=== PATIENT | male | born 1940 | race Caucasian/White ===

== ENCOUNTER 2016-10-20 08:27 | Observation (INO) ==
[2016-10-20] MEDS ORDERED: 0.9 % Sodium Chloride 500 ML ONE (09:30)
--- NOTE | 2016-10-20 11:15 | Anesthesia Evaluation PreOp ---
Date of Encounter: 10/20/16 Time of Encounter: 11:13 - Past History Planned Operation: EUS/ERCP Cardiac History: NC (2015), CHF, HTN (maintained on Metoprolol, Imdur, Norvasc, Imdur), Hyperlipidemia (maintained on Lipitor), Cardiac Stent (stents x 2 [2015] - mid LAD, Proximal LCx - maintained on ASA, Plavix [off x 7 days]), Pacemaker/ICD (AICD implanted 07/25/2016 - LVEF 35%, w/global hypokinesis), Other (ECHO 05/2016 - Cardiomyopathy w/ LVEF 35%) Pulmonary History: Former smoker (Quit 12 months ago), COPD (denies) SMOOTH PLATER History: Denies Any Significant HX Other Medical History: Hepatic (Obstructive jaundice), Other (GI notes Vit K deficiency Coagulopathy re: severe jaundice) Anesthesia History: No Prior Anesthetic Complications, Past Anesthesia (R-elbow surgery x 2 1960s, AICD 11/2016) Alcohol Use: occasionally Drug use: none Medications and Allergies Aspirin [Adult Low Dose Aspirin EC] 81 mg PO QPM 10/30/15 [History] Multivitamin [Multi-Day Vitamins] 1 tab PO QAM 10/30/15 [History] Atorvastatin [Lipitor] 40 mg PO HS #30 tablet 10/31/15 [Rx] Lisinopril [Zestril] 20 mg PO DAILY #30 tablet 10/31/15 [Rx] Clopidogrel Bisulfate [Plavix] 75 mg PO DAILY #30 tablet 11/11/15 [Rx] Metoprolol XL (24 HR) Succ [Toprol Xl] 50 mg PO DAILY 11/11/15 [History] Amlodipine Besylate 2.5 mg PO DAILY 07/25/16 [History] Isosorbide MONOnitrate (24 HR) [Imdur] 120 mg PO DAILY 07/25/16 [History] Acetaminophen [Tylenol] 650 mg PO Q4HR PRN #0 tablet 07/26/16 [Rx] Allergies No Known Allergies Allergy (Verified 08/04/15 10:40) - Meds/Allergy Pre-op Review Medications Reviewed: Yes Allergies Reviewed: Yes Beta Blockers on Current Med List: Yes Anesthesia Results - Labs Laboratory Tests 10/04/16 10/12/16 10/12/16 17:11 08:20 08:20 PT 17.9 H INR 1.6 Sodium 142 Potassium 3.2 L Chloride 107 Carbon Dioxide 27 BUN 21 Creatinine 0.89 Est GFR (Non-Af Amer) > 60 BUN/Creatinine Ratio 24 Glucose 116 H Total Bilirubin 8.4 H Direct Bilirubin 6.3 H Indirect Bilirubin 2.1 H AST 368 H ALT 378 H Alkaline Phosphatase 1123 H Albumin 2.9 L Globulin 3.9 H Albumin/Globulin Ratio 0.7 L CA 19-9 Antigen 25089 H - Imaging EKG: image reviewed (66bpm SR w/SA0) Anesthesia Exam O2 Sat Height 1.83 m Weight 77 kg O2 Sat by Pulse Oximetry 98 O2 Sat by Pulse Oximetry 98 O2 Sat by Pulse Oximetry 98 O2 Sat by Pulse Oximetry 98 O2 Sat by Pulse Oximetry 99 O2 Sat by Pulse Oximetry 99 Vital Signs Temp Pulse Resp BP Pulse Ox 98.3 F 70 16 151/95 99 10/20/16 08:58 10/20/16 08:58 10/20/16 08:58 10/20/16 08:58 10/20/16 08:58 Height: 6'0" Weight: 172.5# - HEENT Pupil (Motor): Pupils equal, EOMI Mallampati: II Oral Opening: Greater than 3 - SMOOTH PLATER LOC: Oriented SMOOTH PLATER Motor: Normal RUE, Normal LUE, Normal RLE, Normal LLE, Normal Face SMOOTH PLATER Sensory: Normal: RUE, LUE, RLE, LLE, Face - Cardiac Rhythm: Regular Murmur: None - Pulmonary Breath Sounds: bilateral Clear Respiratory Effort: Symmetrical Anesthesia Assess/Plan ASA Score: 3 (Smoker, COPD, CAD, AICD placed 07/2016,) Modified Nelly Scale for Level of Consciousness: Cooperative, oriented, and tranquil Anesthetic Plan: General Monitoring Plan: Standard Monitors Recovery Plan: PACU Anes Supervising Prov Stmt: Pt seen/evaluated, R&B discussed, questions answered and consent obtained. Fernandez Tsang MD
[2016-10-20] MEDS ORDERED: *HR* FentaNYL (PF) 100 MCG/2 ML VIAL ONE (11:16)
[2016-10-20 12:56] LABS: INR 1.4; Prothrombin Time 15.4 Seconds (9.4-12.1)
[2016-10-20 12:59] LABS: Activated Partial Thrombo Time 34.9 Seconds (26.0-36.0)
[2016-10-20] MEDS ORDERED: Indomethacin 50 MG SUPP.RECT RC ONE (13:24)
--- NOTE | 2016-10-20 19:44 | Oncology Inp Consult Note ---
Date of Encounter: 10/21/16 Time of Encounter: 19:41 Assessment and Plan (1) Angelina-ampullary carcinoma Status: Acute Assessment and plan: Presenting with deep jaundice elevated liver enzymes. No major pain. Prothrombin time 15.4 INR 1.4 with normal PTT 35 on 10/20/2016 Currently on aspirin 81 mg a day CA-19-9 elevated at 17,367 on 10/12/2016 Plan is to relieve the living obstruction. Possible PTCA and appointment of metal stent. The daily tumor board. He does have periportal and some lymphadenopathy upper abdomen. May consider palliative chemotherapy for FOLFIRINOX cannot tolerate it. If not may try intensive chemotherapy with Gemzar based regimen May consider PET scan as an outpatient. Given the amount of disease and lymphadenopathy he may not be a candidate for radiation and Dr. Mccurdy was present during the GI bleeding. Dr. Martin was present in the meeting. If necessary surgical biliary diversion can be considered especially if stenting does not work 2. Ischemic cardiomyopathy status post ICD May need a cardiac evaluation especially if any surgical procedure is being contemplated - Data of Consult Patient: new to practice Requesting Physician: Marie Lomax MD Primary Care Provider: Layo Woods MD - Consult Narrative Reason for consult: Obstructive jaundice with periampullary carcinoma History of present illness: Mr. Torres is a 76 year old male hospitalized with progressive jaundice. AST and ALT around 360 range. Alkaline phosphatase 1100 on 10/04/2016 Total bilirubin 8.4 with direct bilirubin 6.3 on 10/04/2016 CT abdomen and pelvis with contrast 10/06/2016 are dilated intrahepatic bile a direct common bile duct and pancreatic duct scan be followed all the way to the ampulla. No definite mass in the pancreatic head Bilateral renal cyst Prostatic calcifications suggesting chronic prostatitis Numerous small retroperitoneal lymph nodes Dr. Lomax did ERCP but periampullary mass is noted in ampulla could not be cannulated Cytology obtained and results pending CA-19-9 is elevated at 17,000 PTCA in biliary decompression planned. Discussed at the GI tumor Board 10/21/2016. Dr. Jaylan Barker be able to do PTCA and deploy a metal stent across the ampulla to complete blockage PSA normal at 1.84 Past medical history Ischemic cardiomyopathy Echocardiogram 06/06/2016 elevated left ventricular ejection fraction 35%. Dilatation. Right ventricular function normal size Single chamber Implantable defibrillator inserted on 07/25/2016. Clinically he is asymptomatic with no major shortness of breath or edema He may not be a candidate for MRI because of that Past Med Surg Social Fam HX - Past Medical History Medical history: cardiomyopathy, coronary artery disease, hyperlipidemia, hypertension Psychiatric history: no psych history - Past Surgical History Surgical History: angioplasty/stent, cataract, orthopedic, other - Social History Smoking Status: Former smoker Smokeless Tobacco Status: No Alcohol use: occasionally Drug use: none - Family History Father Family Member Ethnicity: Non- Living Status: Hx Family Cardiac Disorders: Yes ([place]) Hx Family Respiratory Disorders: No Hx Family Cancer: No Hx Family GI Disorders: No Hx Family Endocrine Disorder: No Hx Family Neuromuscular Disorders: No Hx Family Neurologic Disorders: No Hx Family HEENT Disorders: No Hx Family Autoimmune Disorders: No Brother Hx Family Cardiac Disorders: Yes (CABG) Medications and Allergies Aspirin [Adult Low Dose Aspirin EC] 81 mg PO QPM 10/30/15 [History] Multivitamin [Multi-Day Vitamins] 1 tab PO QAM 10/30/15 [History] Atorvastatin [Lipitor] 40 mg PO HS #30 tablet 10/31/15 [Rx] Lisinopril [Zestril] 20 mg PO DAILY #30 tablet 10/31/15 [Rx] Clopidogrel Bisulfate [Plavix] 75 mg PO DAILY #30 tablet 11/11/15 [Rx] Metoprolol XL (24 HR) Succ [Toprol Xl] 50 mg PO DAILY 11/11/15 [History] Amlodipine Besylate 2.5 mg PO DAILY 07/25/16 [History] Isosorbide MONOnitrate (24 HR) [Imdur] 120 mg PO DAILY 07/25/16 [History] Acetaminophen [Tylenol] 650 mg PO Q4HR PRN #0 tablet 07/26/16 [Rx] Allergies No Known Allergies Allergy (Verified 08/04/15 10:40) Oncology - Exam - Constitutional Vitals: Temp Pulse Resp BP Pulse Ox 98.3 F 64 16 155/99 97 10/20/16 18:11 10/20/16 18:11 10/20/16 18:11 10/20/16 18:11 10/20/16 18:11 Exam: GENERAL: Alert and oriented, well appearing. Mental Status: Affect appropriate for circumstances HEENT: Deep jaundice. No mucositis or thrush. No other oral or pharyngeal lesions or erythema. Skin: No rashes or petechiae. No evidence of skin malignancy Lymph nodes: No cervical, supraclavicular, axillary, or inguinal adenopathy. Lungs: Clear to auscultation and percussion bilaterally. Cardiovascular: Regular rate and rhythm. No gallops, murmurs, or rubs. Abdomen: Mild epigastric tenderness Extremities: No edema. No calf swelling or tenderness. No joint deformity. Neurologic: Alert, cranial nerves II-XII intact; normal gait; no focal weakness or sensory abnormalities. Consult Discharge Plan - Plan Referrals: Layo Woods MD [Primary Care Provider] -
--- NOTE | 2016-10-20 20:30 | Internal Med History&Physical ---
Date of Encounter: 10/20/16 Time of Encounter: 20:26 Assessment and Plan (1) Sonya-ampullary carcinoma Current visit: Yes Status: Acute with jaundice IR consulted for ptc/ drainage tomorrow and probably repaet ERCP monday (2) S/P ICD (internal cardiac defibrillator) procedure Current visit: No Status: Acute no recent shock (3) Tobacco abuse Current visit: No Status: Chronic chronic (4) CAD (coronary artery disease) Current visit: No Status: Chronic no chest pain Qualifiers: Coronary Disease-Associated Artery/Lesion type: [place] artery [place] vs. transplanted heart: [place]aja heart Associated angina: angina presence unspecified Qualified Code(s): I25.10 - Atherosclerotic heart disease of [place] coronary artery without angina pectoris (5) Cardiomyopathy Current visit: No Status: Chronic well compensated resume home meds Qualifiers: Cardiomyopathy type: ischemic Qualified Code(s): I25.5 - Ischemic cardiomyopathy (6) Hyperlipemia Current visit: No Status: Chronic chronic Qualifiers: Hyperlipidemia type: mixed hyperlipidemia Qualified Code(s): E78.2 - Mixed hyperlipidemia (7) HTN (hypertension) Current visit: Yes Status: Chronic not well controlled resume home meds Qualifiers: Hypertension type: essential hypertension Qualified Code(s): I10 - Essential (primary) hypertension Internal Medicine - H&P: HPI Chief complaint: jaundice, failed ERCP Admitted From: Direct Admit Plans for Post Hospital Care: Home History of present illness: Mr. Torres is a 76 year old male Patient with history of jaundice, cardiomyopathy/ICD, CAD and prior stent, hypertension, COPD, high cholesterol, patient admitted for outpatient ERCP procedure was a not completeld. there was a sonya-ampullary mass noted therefor duct could not be cannulated patient being admitted to undergo PTC /drainage tomorrow by radiology and then DR Lomax will probably perform ERCP on Monday patient is asymptomatic at this point except for the jaundice. denies any nausea, vomiting no abdominal pain Past Med Surg Social Fam HX - Past Medical History Medical history: cardiomyopathy, coronary artery disease, hyperlipidemia, hypertension, liver disease Psychiatric history: no psych history - Past Surgical History Surgical History: angioplasty/stent, cataract, orthopedic, other, pacemaker/AICD - Social History Smoking Status: Former smoker Smokeless Tobacco Status: No Alcohol use: occasionally Drug use: none - Family History Father Family Member Ethnicity: Non- Living Status: Hx Family Cardiac Disorders: Yes ([place]) Hx Family Respiratory Disorders: No Hx Family Cancer: No Hx Family GI Disorders: No Hx Family Endocrine Disorder: No Hx Family Neuromuscular Disorders: No Hx Family Neurologic Disorders: No Hx Family HEENT Disorders: No Hx Family Autoimmune Disorders: No Brother Hx Family Cardiac Disorders: Yes (CABG) Internal Medicine - H&P: Meds Aspirin [Adult Low Dose Aspirin EC] 81 mg PO QPM 10/30/15 [History] Multivitamin [Multi-Day Vitamins] 1 tab PO QAM 10/30/15 [History] Atorvastatin [Lipitor] 40 mg PO HS #30 tablet 10/31/15 [Rx] Lisinopril [Zestril] 20 mg PO DAILY #30 tablet 10/31/15 [Rx] Clopidogrel Bisulfate [Plavix] 75 mg PO DAILY #30 tablet 11/11/15 [Rx] Metoprolol XL (24 HR) Succ [Toprol Xl] 50 mg PO DAILY 11/11/15 [History] Amlodipine Besylate 2.5 mg PO DAILY 07/25/16 [History] Isosorbide MONOnitrate (24 HR) [Imdur] 120 mg PO DAILY 07/25/16 [History] Acetaminophen [Tylenol] 650 mg PO Q4HR PRN #0 tablet 07/26/16 [Rx] Allergies No Known Allergies Allergy (Verified 08/04/15 10:40) All Systems PM: A 10-system review of systems was performed and is negative for pertinent findings except as documented above in the HPI. - Constitutional Constitutional: no chills, no fever(s), no night sweats - EENT Eyes: no change in vision, no discharge, no pain, no photophobia Ears: no ear discharge, no ear pain, no tinnitus Nose, mouth and throat: no dysphagia, no nasal discharge, no neck pain, no sore throat - Cardiovascular Cardiovascular ROS IM: no chest pain, no diaphoresis, no dyspnea, no lightheadedness, no palpitations, no syncope - Respiratory Respiratory: no cough, no dyspnea, no wheezing, no excessive phlegm production - Gastrointestinal Gastrointestinal: other - Musculoskeletal Musculoskeletal ROS IM: no numbness, no tingling - Integumentary Integumentary IM: jaundice - Neurological Neurological ROS: no confusion, no convulsions, no focal weakness, no numbness, no tingling, no tremor(s) - Hematologic/Lymphatic Hematologic/Lymphatic: no easy bruising - Constitutional Vitals: Temp Pulse Resp BP Pulse Ox 98.5 F 78 16 148/82 97 10/20/16 19:43 10/20/16 19:43 10/20/16 19:43 10/20/16 19:43 10/20/16 19:43 - Eye Eye exam: Present: scleral icterus - Neck Neck exam general surgery: Present: supple, trachea midline. Absent: lymphadenopathy - Respiratory Respiratory exam: Present: CTAB. Absent: accessory muscle use, rales, rhonchi, wheezes - Cardiovascular Cardiovascular exam: Present: systolic murmur - GI/Abdominal GI/Abdominal exam: Present: soft - Extremities Exam Extremities exam: Present: warm, radial pulses palpable and symetrical. Absent : calf tenderness, cyanotic, pedal edema Internal Med - H&P Results - Impressions ITS Impressions Cath/Invasive Procedure 10/20/16 00:00 IMPRESSION: Fluoroscopy provided for ERCP procedure. Please see the intraoperative note for complete details. D/ / Jaylan Fitzpatrick MD / Jaylan Fitzpatrick MD Interpreting Provider: Jaylan Fitzpatrick MD
[2016-10-20] MEDS ORDERED: Naloxone 0.4 MG/ML INJ IVP PRN (20:37)
[2016-10-20] MEDS ORDERED: Acetaminophen 325 MG TABLET PO PRN (20:47)
[2016-10-21 05:21] LABS: Basophils % 0.2 %; Hematocrit 31.1 % (37.5-50.1); Hemoglobin 10.4 g/dL (12.9-16.9); Immature Granulocytes % 0.5 % (0-4); Lymphocytes # 0.9 K/mcL (0.6-4.6); Lymphocytes % 13.5 %; Mean Corpuscular HGB Conc 33.4 g/dL (31.6-35.5); Mean Corpuscular Hemoglobin 27.5 pg (28.0-33.3); Mean Corpuscular Volume 82.3 fL (83.0-100.0); Mean Platelet Volume 11.4 fL (9.4-12.4); Monocytes # 0.7 K/mcL (0.0-1.3); Monocytes % 10.2 %; Neutrophils # 4.8 K/mcL (1.6-8.9); Platelet Count 233 K/mcL (140-400); Red Blood Count 3.78 M/mcL (4.19-5.50); Red Cell Distribution Width 19.6 % (11.5-14.5); Segmented Neutrophils % 75.6 %
[2016-10-21 08:55] LABS: BUN/Creatinine Ratio 20 (6-26); Blood Urea Nitrogen 15 mg/dL (8-26); Carbon Dioxide 25 mEq/L (19-29); Chloride 105 mEq/L (98-109); Glucose 105 mg/dL (70-99); Potassium 3.4 mEq/L (3.5-4.5); Sodium 140 mEq/L (136-145); eGFR For African Americans > 60 (> 60); eGFR For Non-African Americans > 60 (> 60)
[2016-10-21 08:56] LABS: Calcium 8.7 mg/dL (8.6-10.8); Magnesium 1.8 mg/dL (1.6-2.6); Osmolality,Calculated 291 (280-300); Phosphorous 2.3 mg/dL (2.3-4.7)
[2016-10-21] MEDS: amLODIPine 5 MG TABLET PO SCH (09:05)
[2016-10-21] MEDS: Lisinopril 20 MG TABLET PO SCH (09:05)
[2016-10-21] MEDS: Isosorbide MONOnitrate (24 HR) 60 MG TAB.ER.24H PO SCH (09:05)
[2016-10-21] MEDS: Metoprolol XL (24 HR) Succ 25 MG TAB.ER.24H PO SCH (09:05)
[2016-10-21] MEDS: Multivit/Ca/Min/Fe/FA 1 TAB TABLET PO SCH (09:05)
[2016-10-21] MEDS ORDERED: Lidocaine -MPF 4% 5 ML AMPUL TP ONE (12:19)
[2016-10-21] MEDS ORDERED: *HR* Phenylephrine 10 MG/ML VIAL IVC ONE (12:19)
[2016-10-21] MEDS ORDERED: *HR* Propofol 200 MG/20 ML VIAL IVP ONE (12:19)
[2016-10-21] MEDS ORDERED: *HR* Etomidate 20 MG/10 ML AMPUL IVP ONE (12:19)
[2016-10-21] MEDS ORDERED: *HR* EPINEPHrine 1 MG/ML AMPUL IV ONE (12:19)
[2016-10-21] MEDS ORDERED: Dexamethasone 120 MG/30 ML MDV IVP ONE (12:19)
[2016-10-21] MEDS ORDERED: Ondansetron 4 MG/2 ML VIAL IVP ONE (12:19)
[2016-10-21] MEDS ORDERED: *HR* Succinylcholine 200 MG/10 ML VIAL IVP ONE (12:19)
[2016-10-21] MEDS ORDERED: Lidocaine -MPF 2% 5 ML VIAL INFILT ONE (12:19)
[2016-10-21] MEDS ORDERED: 0.9 % Sodium Chloride 10 ML PF VIAL IVP ONE (12:19)
[2016-10-21] MEDS ORDERED: 0.9 % Sodium Chloride 500 ML ONE ×2 (12:37→13:27)
[2016-10-21] MEDS ORDERED: Heparin 1,000 UNITS/500 mL NS 500 ML ONE (12:37)
--- NOTE | 2016-10-21 12:40 | Gastroenterology Consult Note ---
<Niels Thibodeaux Jerri - Last Filed: 10/21/16 12:38> Date of Encounter: 10/21/16 Time of Encounter: 10:50 - Assessment and plan (1) Angelina-ampullary carcinoma Current Visit: Yes Status: Acute Assessment and plan: ERCP yesterday but periampullary mass noted in ampulla and could not be cannulated. Oncology consulted. IR to place stent. (2) Jaundice Current Visit: Yes Status: Acute Assessment and plan: As above. - Time Spent With Patient Total time spent is greater than 50% in coordination of care (as documented) at patient's floor/unit and/or counseling patient: GI History of Present Illness - Data of Consult Patient: known to practice within the last 3 years Consult date: 10/21/16 Requesting Physician: Marie Lomax MD - Consult Narrative Reason for consult: periampullary mass History of present illness: Mr. Torres is a 76 year old male with PMHx of cardiomyopathy, CAD, HLD, HTN, COPD , who was admitted for outpatient ERCP due to jaundice. CT A/P 10/06/16 showed dilated intrahepatic biliary ducts with dilated CBD and dilated PD that could be followed to the ampulla. ERCP yesterday, but periampullary mass noted in ampulla and could not be cannulated. CA 19-9 was 17,367 on 10/12/2016. He denies abdominal pain, nausea, vomting, melena, or hematochezia. Procedures: NSAIDs: ASA Anticoagulation: Plavix Past Med Surg Social Fam HX - Past Medical History Medical history: cardiomyopathy, coronary artery disease, hyperlipidemia, hypertension Psychiatric history: no psych history - Past Surgical History Surgical History: angioplasty/stent, cataract, orthopedic, other - Social History Smoking Status: Former smoker Smokeless Tobacco Status: No Alcohol use: occasionally Drug use: none - Family History Father Family Member Ethnicity: Non- Living Status: Hx Family Cardiac Disorders: Yes ([place]) Hx Family Respiratory Disorders: No Hx Family Cancer: No Hx Family GI Disorders: No Hx Family Endocrine Disorder: No Hx Family Neuromuscular Disorders: No Hx Family Neurologic Disorders: No Hx Family HEENT Disorders: No Hx Family Autoimmune Disorders: No Brother Hx Family Cardiac Disorders: Yes (CABG) - Gastrointestinal Gastrointestinal: Present: as per HPI - Constitutional Constitutional: as per HPI - EENT Eyes: as per HPI Ears: Present: as per HPI Nose, mouth and throat: Present: as per HPI - Cardiovascular Cardiovascular ROS: Present: as per HPI - Respiratory Respiratory IM: Present: as per HPI - Genitourinary Genitourinary: Absent: change in color, Urinary frequency - Neurological ROS Neurological GI: Present: as per HPI - Hematologic/Lymphatic Hematologic/Lymphatic pediatric: Present: as per HPI - Musculoskeletal Musculoskeletal ROS GI: Present: as per HPI - Integumentary Integumentary GI: Present: as per HPI - Psychiatric ROS Psychiatric GI: Present: as per HPI - Endocrine Endocrine IM: Present: as per HPI - Constitutional Vitals: Temp Pulse Resp BP Pulse Ox 98.3 F 68 16 118/73 97 10/21/16 10:50 10/21/16 10:50 10/21/16 10:50 10/21/16 10:50 10/21/16 10:50 General appearance: Present: cooperative, A&O X 3, no acute distress, answers questions appropriately - Head Head exam: Present: atraumatic, normocephalic - Eye Eye exam: Present: scleral icterus - ENT ENT exam: Present: mucous membranes dry - Neck Neck exam general surgery: Present: normal inspection, trachea midline - Respiratory Respiratory exam: Present: CTAB. Absent: rales, rhonchi - Cardiovascular Cardiovascular exam: Present: RRR, +S1, +S2 - GI/Abdominal GI/Abdominal exam: Present: soft, no peritoneal signs. Absent: distended, firm , guarding, tenderness - Rectal Rectal exam: Present: deferred - Extremities Exam Extremities exam: Present: warm - Neurological Exam Neurological exam: Present: no focal deficits - Psychiatric Psychiatric exam: Present: normal affect, normal mood - Skin Skin exam: Present: dry, intact, warm. Absent: normal color (jaundiced) Results - Labs CBC & Chem 7: 10/21/16 04:51 10/21/16 08:29 Labs: Last Result Calcium 8.7 mg/dL (8.6-10.8) 10/21/16 08:29 Entire Visit Hgb 10.4 g/dL (12.9-16.9) L 10/21/16 04:51 Hct 31.1 % (37.5-50.1) L 10/21/16 04:51 PT 15.4 Seconds (9.4-12.1) H 10/20/16 12:45 - ABG ABG results: PT/INR, D-dimer PT 15.4 Seconds (9.4-12.1) H 10/20/16 12:45 - Impressions Impressions Cath/Invasive Procedure 10/20/16 00:00 IMPRESSION: Fluoroscopy provided for ERCP procedure. Please see the intraoperative note for complete details. D/ / Jaylan Fitzpatrick MD / Jaylan Fitzpatrick MD Interpreting Provider: Jaylan Fitzpatrick MD Consult Discharge Plan - Plan Referrals: Layo Woods MD [Primary Care Provider] - <Marie Lomax - Last Filed: 10/21/16 14:48> Date of Encounter: 10/21/16 - Time Spent With Patient Total time spent is greater than 50% in coordination of care (as documented) at patient's floor/unit and/or counseling patient: GI History of Present Illness - Data of Consult Requesting Physician: Marie Lomax MD - Consult Narrative History of present illness: Mr. Torres is a 76 year old male - Constitutional Vitals: Temp Pulse Resp BP Pulse Ox 98.3 F 75 12 132/74 98 10/21/16 10:50 10/21/16 14:45 10/21/16 14:45 10/21/16 14:45 10/21/16 14:45 Results - Labs CBC & Chem 7: 10/21/16 04:51 10/21/16 08:29 Labs: Last Result Calcium 8.7 mg/dL (8.6-10.8) 10/21/16 08:29 Entire Visit Hgb 10.4 g/dL (12.9-16.9) L 10/21/16 04:51 Hct 31.1 % (37.5-50.1) L 10/21/16 04:51 PT 15.4 Seconds (9.4-12.1) H 10/20/16 12:45 - ABG ABG results: PT/INR, D-dimer PT 15.4 Seconds (9.4-12.1) H 10/20/16 12:45 - Impressions Impressions Cath/Invasive Procedure 10/20/16 00:00 IMPRESSION: Fluoroscopy provided for ERCP procedure. Please see the intraoperative note for complete details. D/ / Jaylan Fitzpatrick MD / Jaylan Fitzpatrick MD Interpreting Provider: Jaylan Fitzpatrick MD - Attending Attestation I examined this patient and my medical decision-making was reviewed with the [employer]GR[employer]HY/PA/Advanced Practice Nurse/Resident Physician. I agree with the documented findings, disposition and treatment plan as described except to the extent set forth below.
[2016-10-21] MEDS ORDERED: Piperacillin/Tazobactam 3.375 GM in D5% in Water (Mini-Bag+) 100 ML IVPB ONE (13:19)
[2016-10-21] MEDS: *HR* Midazolam HCl 2 MG/2 ML VIAL IV PRN ×2 (13:52→14:20)
[2016-10-21] MEDS: *HR* FentaNYL (PF) 100 MCG/2 ML VIAL IV PRN ×4 (13:52→14:42)
--- NOTE | 2016-10-21 15:40 | IR Procedure Note ---
Date of procedure: 10/21/16 Consent Obtained: Written consent Timeout: Correct patient and procedure verified, Correct site verified, Time out performed, Skin prep completed Local anesthetic: Lidocaine 1% Indications: Periampullary mass, biliary obstruction Procedure Performed: Metallic biliary stent placement, PTC Site/Technique: Obstruction successfully crossed.Metallic stent d/w GI/Onc prior to proced. Results/Findings: Metallic non-covered 10mm x 6cm stent placed accross obstruction Estimated blood loss (cc): 1 Complications: None; Tolerated procedure well Post Procedure Treatment Plan: Monitoring in pts room. Pt right side down x 1 hour.
--- NOTE | 2016-10-21 16:04 | Internal Med Progress Note ---
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 (2) Hyperlipemia Current Visit: No Status: Chronic Assessment and plan: continue home medications Qualifiers: Hyperlipidemia type: mixed hyperlipidemia Qualified Code(s): E78.2 - Mixed hyperlipidemia (3) CAD (coronary artery disease) Current Visit: No Status: Chronic Assessment and plan: no signs of angina present at this time continue home medications Qualifiers: Coronary Disease-Associated Artery/Lesion type: [place] artery [place] vs. transplanted heart: [place] heart Associated angina: angina presence unspecified Qualified Code(s): I25.10 - Atherosclerotic heart disease of [place] coronary artery without angina pectoris (4) HTN (hypertension) Current Visit: Yes Status: Chronic Assessment and plan: BP within acceptable range continue home medications Qualifiers: Hypertension type: essential hypertension Qualified Code(s): I10 - Essential (primary) hypertension (5) DVT prophylaxis Current Visit: Yes Status: Acute Assessment and plan: IPCD (6) Anemia Current Visit: Yes Status: Acute Assessment and plan: Of unclear etiology H&H low but acceptable not acute bleeding noted at this time will obtain iron studies will closely monitor Qualifiers: Anemia type: unspecified type Qualified Code(s): D64.9 - Anemia, unspecified - Subjective Interval history: Patient seen and examined with family present at bedside. s/p billiary stent placement by IR. Tolerated the procedure well and in no acute distress or discomfort at this time. I spoke with Dr. Lomax and no acute GI intervention at this time, but a follow up recommended within one week. - Constitutional Vitals: Temp Pulse Resp BP Pulse Ox 98.2 F 84 16 129/75 94 10/21/16 15:55 10/21/16 15:55 10/21/16 15:55 10/21/16 15:55 10/21/16 15:55 General appearance: Present: cooperative, A&O X 3 (jaundiced), pleasant, no acute distress - Head Head exam: Present: atraumatic, normocephalic - Eye Eye exam: Present: normal appearance, scleral icterus - Respiratory Respiratory exam: Present: CTAB. Absent: accessory muscle use, rales, rhonchi, wheezes - Cardiovascular Cardiovascular exam: Present: RRR, +S1, +S2. Absent: diastolic murmur, gallop, rubs, systolic murmur - GI/Abdominal GI/Abdominal exam: Present: normal bowel sounds, soft, no peritoneal signs. Absent: distended, tenderness - Extremities Exam Extremities exam: Present: warm, radial pulses palpable and symetrical. Absent : calf tenderness, cyanotic, pedal edema - Neurological Exam Neurological exam: Present: alert, oriented X3 - Psychiatric Psychiatric exam: Present: normal affect, normal mood Internal Medicine: Result - Labs CBC & Chem 7: 10/21/16 04:51 10/21/16 08:29 Labs: Short CBC 10/21/16 Range/Units 04:51 WBC 6.4 (4.3-11.1) K/mcL Hgb 10.4 L (12.9-16.9) g/dL Hct 31.1 L (37.5-50.1) % Plt Count 233 (140-400) K/mcL Neutrophils # 4.8 (1.6-8.9) K/mcL BMP 10/21/16 08:29 Sodium 140 Potassium 3.4 L Chloride 105 Carbon Dioxide 25 BUN 15 Creatinine 0.75 Glucose 105 H Calcium 8.7 - ABG Interpretation ABG results: PT/INR, D-dimer PT 15.4 Seconds (9.4-12.1) H 10/20/16 12:45 - Impressions Impressions Cath/Invasive Procedure 10/20/16 00:00 IMPRESSION: Fluoroscopy provided for ERCP procedure. Please see the intraoperative note for complete details. D/ / Jaylan Fitzpatrick MD / Jaylan Fitzpatrick MD Interpreting Provider: Jaylan Fitzpatrick MD Biliary Stent Insertion 10/21/16 00:00 IMPRESSION: Successful placement of a metallic biliary stent across the ampulla secondary to complete biliary obstruction from the ampullary mass. D/ / Jaylan Barker MD / Jaylan Barker MD Interpreting Provider: Jaylan Barker MD Catheter Placement 10/21/16 00:00 IMPRESSION: Successful placement of a metallic biliary stent across the ampulla secondary to complete biliary obstruction from the ampullary mass. D/ / Jaylan Barker MD / Jaylan Barker MD Interpreting Provider: Jaylan Barker MD Cholangiogram 10/21/16 00:00 IMPRESSION: Successful placement of a metallic biliary stent across the ampulla secondary to complete biliary obstruction from the ampullary mass. D/ / Jaylan Barker MD / Jaylan Barker MD Interpreting Provider: Jaylan Barker MD Guidance Needle Placement Ultrasound 10/21/16 00:00 IMPRESSION: Successful placement of a metallic biliary stent across the ampulla secondary to complete biliary obstruction from the ampullary mass. D/ / Jaylan Barker MD / Jaylan Barker MD Interpreting Provider: Jaylan Barker MD Consult Discharge Plan - Plan Referrals: Layo Woods MD [Primary Care Provider] -
[2016-10-21] MEDS ORDERED: Aspirin Enteric Coated 81 MG Tablet PO SCH (18:00)
[2016-10-22 04:59] LABS: Basophils % 0.3 %; Eosinophils # 0.2 K/mcL (0.0-0.6); Eosinophils % 2.3 %; Hematocrit 30.7 % (37.5-50.1); Immature Granulocytes % 0.4 % (0-4); Lymphocytes # 1.3 K/mcL (0.6-4.6); Lymphocytes % 18.4 %; Mean Corpuscular HGB Conc 32.6 g/dL (31.6-35.5); Mean Corpuscular Hemoglobin 27.3 pg (28.0-33.3); Mean Corpuscular Volume 83.9 fL (83.0-100.0); Mean Platelet Volume 10.8 fL (9.4-12.4); Monocytes # 0.6 K/mcL (0.0-1.3); Neutrophils # 4.9 K/mcL (1.6-8.9); Platelet Count 227 K/mcL (140-400); Red Blood Count 3.66 M/mcL (4.19-5.50); Red Cell Distribution Width 19.8 % (11.5-14.5); Segmented Neutrophils % 69.6 %
[2016-10-22 05:14] LABS: BUN/Creatinine Ratio 23 (6-26); Blood Urea Nitrogen 18 mg/dL (8-26); Calcium 8.3 mg/dL (8.6-10.8); Carbon Dioxide 27 mEq/L (19-29); Chloride 105 mEq/L (98-109); Glucose 95 mg/dL (70-99); Magnesium 1.7 mg/dL (1.6-2.6); Osmolality,Calculated 292 (280-300); Phosphorous 2.7 mg/dL (2.3-4.7); Potassium 3.7 mEq/L (3.5-4.5); Sodium 140 mEq/L (136-145); eGFR For African Americans > 60 (> 60); eGFR For Non-African Americans > 60 (> 60)
[2016-10-22 05:55] LABS: % Iron Saturation 18 % (20-55); Iron 42 mcg/dL (65-175); Transferrin 168 mg/dL (174-364)
[2016-10-22 06:15] LABS: Ferritin 671 ng/ml (22-275)
[2016-10-22] MEDS: Lisinopril 20 MG TABLET PO SCH (08:09)
[2016-10-22] MEDS: amLODIPine 5 MG TABLET PO SCH (08:10)
[2016-10-22] MEDS: Isosorbide MONOnitrate (24 HR) 60 MG TAB.ER.24H PO SCH (08:10)
[2016-10-22] MEDS: Multivit/Ca/Min/Fe/FA 1 TAB TABLET PO SCH (08:10)
[2016-10-22] MEDS: Metoprolol XL (24 HR) Succ 25 MG TAB.ER.24H PO SCH (08:10)
--- NOTE | 2016-10-22 12:25 | Discharge Summary ---
Date of Encounter: 10/22/16 Time of Encounter: 12:21 - Discharge Diagnosis (1) Angelina-ampullary carcinoma Priority: Primary Status: Acute (2) Hyperlipemia Priority: Secondary Status: Chronic Qualifiers: Hyperlipidemia type: mixed hyperlipidemia Qualified Code(s): E78.2 - Mixed hyperlipidemia (3) CAD (coronary artery disease) Priority: Secondary Status: Chronic Qualifiers: Coronary Disease-Associated Artery/Lesion type: [place] artery [place] vs. transplanted heart: [place] heart Associated angina: angina presence unspecified Qualified Code(s): I25.10 - Atherosclerotic heart disease of [place] coronary artery without angina pectoris (4) HTN (hypertension) Priority: Secondary Status: Chronic Qualifiers: Hypertension type: essential hypertension Qualified Code(s): I10 - Essential (primary) hypertension (5) DVT prophylaxis Priority: Secondary Status: Acute (6) Anemia Priority: Secondary Status: Acute Qualifiers: Anemia type: unspecified type Qualified Code(s): D64.9 - Anemia, unspecified - Discharge Medications Home Medications: Aspirin [Adult Low Dose Aspirin EC] 81 mg PO QPM 10/30/15 [History] Multivitamin [Multi-Day Vitamins] 1 tab PO QAM 10/30/15 [History] Atorvastatin [Lipitor] 40 mg PO HS #30 tablet 10/31/15 [Rx] Clopidogrel Bisulfate [Plavix] 75 mg PO DAILY #30 tablet 11/11/15 [Rx] Metoprolol XL (24 HR) Succ [Toprol Xl] 50 mg PO DAILY 11/11/15 [History] Amlodipine Besylate 2.5 mg PO DAILY 07/25/16 [History] Isosorbide MONOnitrate (24 HR) [Imdur] 120 mg PO DAILY 07/25/16 [History] Acetaminophen [Tylenol] 650 mg PO Q4HR PRN #0 tablet 07/26/16 [Rx] Lisinopril [Zestril] 40 mg PO DAILY 10/21/16 [History] Allergies/Adverse Reactions: Allergies No Known Allergies Allergy (Verified 08/04/15 10:40) Procedures/tests Complete & Pending: Procedures Performed prior 72 hours Category Date Time Status IR biliary dilation w stent [IR] Routine IR 10/21/16 Completed IR cholangiogram via catheter [IR] Routine IR 10/21/16 Completed IR intro biliary catheter S&I [IR] Routine IR 10/21/16 Completed IR us guide needle place [IR] Routine IR 10/21/16 Completed Date of admission: 10/21/16 03:17 Primary care physician: Layo Woods MD Consults: 10/20/16 20:50 Consult to Interventional Radiology [CONS] Routine Consulting Provider: Radiology Interventional [facility] Reason for Consult: ptc of ampulla Time Notified: 20:51 Call Completed: No 10/20/16 20:52 Consult to Gastroenterology [CONS] Routine Consulting Provider: Gastroenterology Roxanne Reason for Consult: known to service Time Notified: 20:53 Call Completed: No 10/21/16 16:37 Consult to Oncology [CONS] Routine Consulting Provider: Oncology [facility] Reason for Consult: mass in biliary duct-biopsy taken Call Completed: No Discharging clinician: Grace Hardy Anticipated date of discharge: 10/22/16 - Patient Status Disposition: Home, Self-Care Condition: Good Functional capacity at discharge: independent ambulation Overall status at discharge: patient is back to baseline - Discharge Instructions Follow Up With: Layo Woods MD [Primary Care Provider] - (CALL ON DC) Monico Tavera MD [Partnered Physician] - (PAPERWORK HAS BEEN FAXED TO START REFERRAL, OFFICE WILL CALL PATIENT DIRECTLY WITH APPT) Marie Lomax MD [Partnered Physician] - (WEB REQUEST SENT-OFFICE CLOSED UNTIL MONDAY, THEY WILL CALL YOU WITH APPT) Additional Instructions: Please follow up with your primary care physician, oncologist, and solar energy installation manager within one week after your discharge from the hospital. Please resume all your home medications as prescribed by your primary care physician. - Diet and Activity Activity: increase activity as tolerated Diet: advance to your usual diet, low salt diet Hospital course: Mr. Torres is a 76 year old male with PMH of HTN, CAD, HLD who was admitted for evaluation of worsening jaundice. 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 Patient had an ERCP but the perimpullary mass was noted in the ampulla and could not be canulated due to which IR was consulted. Pt underwent PTC and had a biliary stent placed by IR. Patient tolerated the procedure well and is currently asymptomatic. He is to follow up with Oncology and GI after discharge. At this time patient is hemodynamically stable and will be discharged to home with follow up with PCP, GI, and Oncology. Patient demonstrates understanding of his diagnosis and agree with the discharge care and plan. - Time Spent with Patient Total time spent providing and/or coordinating discharge services: Less than 30 minutes - Constitutional Vitals: Temp Pulse Resp BP Pulse Ox 98.3 F 59 16 124/70 100 10/22/16 10:50 10/22/16 10:50 10/22/16 10:50 10/22/16 10:50 10/22/16 10:50 General appearance: Present: cooperative, A&O X 3 (jaundiced), pleasant, no acute distress - Head Head exam: Present: atraumatic, normocephalic - Eye Eye exam: Present: scleral icterus - Respiratory Respiratory exam: Present: CTAB. Absent: accessory muscle use, rales, rhonchi, wheezes - Cardiovascular Cardiovascular exam: Present: RRR, +S1, +S2. Absent: diastolic murmur, gallop, rubs, systolic murmur - GI/Abdominal GI/Abdominal exam: Present: normal bowel sounds, soft, no peritoneal signs. Absent: distended, tenderness - Extremities Exam Extremities exam: Present: warm, radial pulses palpable and symetrical. Absent : calf tenderness, cyanotic, pedal edema - Neurological Exam Neurological exam: Present: alert, oriented X3, no focal deficits. Absent: pronater drift, facial droop, speech deficit - Psychiatric Psychiatric exam: Present: normal affect, normal mood
[2016-10-25 10:32] VITALS: BP 124/70
== END 2016-10-22 13:47 | disposition home or self-care (01) | DRG 435 ==
LOC: SAMDAY 08:27 → 3NENU 08:36 → INTOOBSV 10-21 03:17 → 3NENU 10-21 03:17 → SUATTDRO 10-21 03:17
PROVIDERS: ADMIT Internal Medicine Cardiovascular Disease; ATTEND Internal Medicine
PROC: ENDOEUS (2016-10-20 11:00)